=== PATIENT | female | born 1965 | race Caucasian/White ===

== ENCOUNTER → 2016-11-30 | Outpatient (CLI) | payer BC ==
[~2016-11-30] MED LIST: BCPILLS PO
--- NOTE | 2016-11-30 15:32 | MAMMOGRAPHY REPORT ---
BILATERAL DIGITAL SCREENING MAMMOGRAM TOMOSYNTHESIS WITH CAD: 11/30/2016 CLINICAL HISTORY: Routine screening. Patient has no complaints. TECHNIQUE: Breast tomosynthesis in addition to standard 2D mammography was performed. Current study was also evaluated with a Computer Aided Detection (CAD) system. COMPARISON: Comparison is made to exams dated: 11/29/2015 mammogram, 11/12/2013 mammogram, 11/13/2014 m ammogram, 11/11/2012 mammogram, 11/08/2011 mammogram, and 11/07/2010 mammogram - [facility]. BREAST COMPOSITION: There are scattered areas of fibroglandular density in both breasts. FINDINGS: No suspicious masses, calcifications, or areas of architectural distortion are noted in e ither breast. There has been no significant interval change compared to prior exams. Nodular asymme try in the right medial breast on the cc view appears similar to prior exams including the 2014 exam , and has the appearance of overlapping fibroglandular tissue on the tomosynthesis images. IMPRESSION: ACR BI-RADS CATEGORY 2: BENIGN There is no mammographic evidence of malignancy. A 1 year screening mammogram is recommended. The p atient will receive written notification of the results. Approximately 10% of breast cancers are not detected with mammography. A negative mammographic repor t should not delay biopsy if a clinically suggestive mass is present. Yumiko Desai M.D. ah/:11/30/2016 14:32:27 Earth Moving Machine Operator: Vivien GAYTAN(Jude)(M), [facility] letter sent: Normal 1/2 BI-RADS Code: ACR BI-RADS Category 2: Benign
== END | disposition home or self-care (01) ==
LOC: C.MAMM 13:54
PROVIDERS: ATTEND Obstetrics & Gynecology
DX: Z12.31 Encounter for screening mammogram for malignant neoplasm of breast (principal)

== ENCOUNTER → 2017-08-08 | Outpatient (CLI) | payer BC | END | disposition home or self-care (01) | LOC: C.LABSPEC 17:37 | PROVIDERS: ATTEND Family Medicine | DX: J02.9 Acute pharyngitis, unspecified (principal) ==

== ENCOUNTER → 2017-12-03 | Outpatient (CLI) | payer OTHER ==
--- NOTE | 2017-12-04 12:57 | MAMMOGRAPHY REPORT ---
BILATERAL DIGITAL SCREENING MAMMOGRAM TOMOSYNTHESIS WITH CAD: 12/03/2017 CLINICAL HISTORY: Routine screening. Patient has no complaints. TECHNIQUE: Breast tomosynthesis in addition to standard 2D mammography was performed. Current study was also evaluated with a Computer Aided Detection (CAD) system. COMPARISON: Comparison is made to exams dated: 11/30/2016 mammogram, 11/29/2015 mammogram, 11/13/2014 marcel mogram, 11/12/2013 mammogram, 11/11/2012 mammogram, and 11/08/2011 mammogram - [facility]. BREAST COMPOSITION: There are scattered areas of fibroglandular density in both breasts. FINDINGS: A linear scar marker overlies the upper outer posterior right breast. There is stable asym metry in the lateral left breast. No suspicious mass, architectural distortion or cluster of suspici ous microcalcifications is seen. IMPRESSION: ACR BI-RADS CATEGORY 1: NEGATIVE There is no mammographic evidence of malignancy. A 1 year screening mammogram is recommended. The pa tient will receive written notification of the results. Approximately 10% of breast cancers are not detected with mammography. A negative mammographic report should not delay biopsy if a clinically suggestive mass is present. Lauren Calvo M.D. ay/:12/03/2017 15:50:56 Film Inspector: Alka GAY)(María), [facility] letter sent: Normal 1/2 BI-RADS Code: ACR BI-RADS Category 1: Negative
== END | disposition home or self-care (01) ==
LOC: C.MAMM 13:56
PROVIDERS: ATTEND Obstetrics & Gynecology
DX: Z12.31 Encounter for screening mammogram for malignant neoplasm of breast (principal)

== ENCOUNTER 2018-01-13 11:14 | Emergency (ER) | payer OTHER ==
[~2018-01-13] VITALS: Ht 170.2 cm; Wt 65.3 kg
[2018-01-13 11:19] VITALS: TEMP 36.9; Ht 170.2 cm; Wt 65.3 kg
[2018-01-13] MEDS ORDERED: MoRPHine SULFATE 10 MG/ML CARP/VIAL IM STA (11:36)
[2018-01-13] MEDS ORDERED: KETOROLAC TROMETHAMINE 60 MG/2 ML VIAL IM STA (11:36)
[2018-01-13] MEDS ORDERED: PRED20TA PO (11:58)
[2018-01-13 12:14] VITALS: BP 120/77; PULSE 56; O2SAT 100
--- NOTE | 2018-01-13 15:36 | EMERGENCY ROOM VISIT NOTE ---
History First contact with patient: 11:24 Chief Complaint: PAIN (GENERALIZED) Stated Complaint: NERVE PAIN AND MUSCLE SPASMS History of Present Illness The patient is a 52 year old white female who presents to the Emergency Room with complaints of neck pain that radiates to her right shoulder and right arm. This is been ongoing for over a week. Patient states she did see her orthopedist, Dr. Spears, and had x-rays obtained. MRI of the cervical spine was recommended due to possible degenerative disc disease. She has not had this scheduled yet. She was given [place] but states it does not sit well with her. She does get a strange feeling from it. She chooses not to use it and instead has been using Tylenol and Naprosyn. She states these are not helping. She called the on-call orthopedist and was told to come to the ED. No new injury. Symptoms are radiating to the right arm. No other treatment. No other complaints. No symptoms to the left arm. She did not sleep well last night secondary to pain. Review of Systems REVIEW OF SYSTEM: HEENT: No dizziness, visual problems, hearing loss, or tinnitus. There is no difficulty swallowing and no oral lesions are present. LYMPH: No adenopathy. PULMONARY: No cough, shortness of breath, sputum production or hemoptysis. CARDIOVASCULAR: No chest pain, palpitations, shortness of breath or peripheral edema. GASTROINTESTINAL: No diarrhea, constipation, nausea, vomiting, or abdominal pain. GENITOURINARY: No dysuria, frequency, urgency or nocturia. NEUROLOGIC: No weakness, muscle tenderness, epilepsy or history of neurological problems. MUSCULOSKELETAL: No history of joint tenderness/swelling. No history of arthritis or arthralgias. SKIN: No rashes or lesions. PSYCHIATRIC: No history of depression or mental illness. ENDOCRINE: No history of diabetes, thyroid disorders, or abnormal hair growth. Past Medical/Surgical History Previous surgeries: Tonsillectomy, wisdom tooth extraction, breast biopsy Medical history: Significant for current neck pain and skin problems. Left last tetanus was greater than 10 years. Family History Unremarkable. Parents are living. Social History Smoking Status: Never Smoker Smokeless Tobacco Use: No Alcohol Use: occasionally Drug Use: none Marital Status: Housing Status: lives with family Occupation Status: employed Current/Historical Medications Scheduled Prednisone (Prednisone), 0 PO DAILY Physical Exam Vital Signs Date Time Temp Pulse Resp B/P (MAP) Pulse Ox O2 Delivery O2 Flow Rate FiO2 01/13/18 12:14 56 16 120/77 100 01/13/18 11:19 36.9 81 18 133/83 100 Room Air Physical Exam General: Well-developed, well-nourished, middle-aged white female, in obvious discomfort. No acute distress. Sitting on the bed. Alert and oriented. Skin: Warm and dry with good turgor. No rashes or lesions. No ecchymosis or erythema. The patient is not diaphoretic. No abrasions. Musculoskeletal: Patient has no obvious asymmetry or deformity to the cervical spine. She has focal discomfort with palpation over the C5 through C7 vertebrae and disc spaces. Palpation in this area does increase symptoms to her right shoulder. She has focal discomfort with palpation through the right trapezius. Muscle spasm is palpable. Full range of motion of the shoulder. Normal overhead reach. Strength is 5/5 for resisted shoulder abduction, bicep curl, wrist extension, wrist flexion, thumb extension, thumb flexion, finger abduction, and finger flexion. Full rotation of the cervical spine. She gets increasing right arm symptoms with neck extension. She gets increasing pain in the trapezius with neck flexion. She has limitation in lateral flexion to the right. Neurologic: Intact sensation to the right arm across all dermatomes. She does complain of decreased subjective sensation across the thumb and median nerve pattern. Peripheral pulses are 2+. Medical Decision & Procedures Medications Administered Medications (Trade) Dose Ordered Sig/Robby Route Start Time Stop Time Status Last Admin Dose Admin Morphine Sulfate (MoRPHine SULFATE INJ) 6 mg NOW STAT IM 01/13/18 11:36 01/13/18 11:37 DC 01/13/18 11:45 6 MG Ketorolac Tromethamine (Toradol Inj) 60 mg NOW STAT IM 01/13/18 11:36 01/13/18 11:37 DC 01/13/18 11:46 60 MG ED Course Patient was educated regarding today's findings. Conservative care measures were discussed. She already has radiographic imaging of her neck obtain this week. We did not repeat her films. She is waiting for her MRI to be scheduled. I do not think this needs to be done emergently. Option of steroid treatment was discussed. She would like to speak with her orthopedist first before beginning. Prescription for a tapering course of prednisone was provided. She was given morphine 6 mg IM and Toradol 60 mg IM while in the ED. Continue with her Tylenol and Naprosyn as previously administered. She may also use the [place] 5 mg every 6 hours as needed for breakthrough pain. Call the orthopedic office tomorrow. Maintain a neutral position of the neck when sitting or sleeping to minimize exacerbation of her pain. Return to the ED for any acute worsening of symptoms. Medical Decision Possibility of nerve root impingement, disc disease, fracture, muscle spasm, brachial plexus injury, and muscle strain were considered among others Medication Reconcilliation Current Medication List: was personally reviewed by me Blood Pressure Screening Patient's blood pressure: Normal blood pressure Impression Primary Impression: Cervical radiculopathy, acute Departure Information Dispostion Home / Self-Care Condition GOOD Prescriptions Prednisone (Prednisone) 20 Mg Tab 0 PO DAILY, #12 TAB 3 DAILY FOR 2 DAYS, THEN 2 DAILY FOR 2 DAYS, THEN 1 DAILY FOR 2 DAYS. Prov: Oskar Arnold,P.A. 01/13/18 Referrals Collins Spears M.D. Forms WORK / SCHOOL INSTRUCTIONS, HOME CARE DOCUMENTATION FORM, TYLENOL USE, IMPORTANT VISIT INFORMATION Patient Instructions [facility] Additional Instructions Follow up with your orthopedist on Sunday for further imaging Prednisone daily-60 mg 2 days, 40 mg 2 days, and 20 mg 2 days Continue with her Tylenol every 6 hours and Naprosyn twice per day as needed Maintaining a neutral position for the neck may help limit your pain.
[2018-01-15] MEDS ORDERED: NAPR-1168 PO (20:45)
[2018-01-15] MEDS ORDERED: ACET-1256 PO (20:45)
== END 2018-01-13 12:16 | disposition home or self-care (01) ==
LOC: C.EDB 11:16 → C.EDC 12:16
DX: M54.12 Radiculopathy, cervical region (principal)

== ENCOUNTER 2018-01-15 19:11 | Emergency (ER) | payer OTHER ==
[~2018-01-15] VITALS: Ht 170.2 cm; Wt 65.0 kg
[~2018-01-15 19:11] MED LIST changes: -BCPILLS PO; +PRED20TA PO
[2018-01-15 19:15] VITALS: TEMP 36.8; Ht 170.2 cm; Wt 65.0 kg
[2018-01-15] MEDS ORDERED: KETOROLAC TROMETHAMINE 30 MG/ML VIAL IV STA (19:25)
[2018-01-15] MEDS ORDERED: MoRPHine SULFATE 4 MG/ML 1 ML CARP\\VIAL IV STA ×2 (19:25→19:56)
[2018-01-15] MEDS ORDERED: DEXAMETHASONE SOD INJ 4 MG/ML VIAL IV STA (19:43)
--- NOTE | 2018-01-15 19:55 | EMERGENCY ROOM VISIT NOTE ---
ED Visit Note First contact with patient: 19:18 CHIEF COMPLAINT: Neck pain HISTORY OF PRESENT ILLNESS: This 52-year-old female patient presents to the emergency department by private vehicle with her complaining of pain in the neck and right arm that started 8 days ago. The patient was seen in this emergency department 2 days ago regarding this pain, and has had an x-ray of her cervical spine. She is followed by Dr. Bettencourt at [facility], who ordered an MRI of the cervical spine today. The patient states that she started having severe muscle spasms in her right upper arm and shoulder area that have been constant, unbearable, 10/10. She has taken Tylenol, naproxen, and Flexeril with no relief. She was also started on a prednisone taper yesterday, but has not noticed any improvement yet. The patient does have a history of previous neck problems, but states never this severe. She denies any recent injury to the neck or arm. The patient does not have pain of the left arm or shoulder. The patient states she has some numbness in her right thumb that has been going on for the past 8 days and is not new or worsened today. She denies any weakness of the right arm and is able to move it normally. The patient denies chest pain or shortness of breath. There was no head injury and no loss of consciousness. The patient denies headache, blurred vision, abdominal pain, nausea, or vomiting. She denies any bowel or bladder dysfunction, saddle paresthesias, numbness or weakness of the lower extremities. REVIEW OF SYSTEMS: A complete 10 point review of systems was reviewed with the patient with pertinent positives and negatives as per history of present illness. All else were negative. ALLERGIES: No known allergy MEDICATIONS: Reviewed in chart. PMH: Degenerative disc disease of the cervical spine, inflammation of the right shoulder requiring cortisone shots SOCIAL HISTORY: Lives at home with her family. She denies tobacco use, alcohol or recreational drug use. PHYSICAL EXAM: VITALS: Vitals are noted on the nurse's note and reviewed by myself. Notably tachycardic and hypertensive. GENERAL: Pleasant and cooperative, in no acute distress, but in obvious discomfort, tearful and pacing the room. Non- diaphoretic, well-developed well-nourished. SKIN: Capillary reflex less than 2 seconds. HEENT: Normocephalic. PERRLA. EOMI. Nares patent. Mucous membranes moist. Neck is supple without nuchal rigidity. Cervical spine is not tender to palpation. The patient has moderate tenderness of the paraspinal muscles on the right. There is no lymphadenopathy. MUSCULOSKELETAL: The patient has full range of motion of the bilateral arms. Strength 5/5 of the bilateral upper extremities. The patient has tenderness with turning of the neck to the right. There is notable spasm of the superior trapezius muscle on the right. Able to give a thumbs up and make an okay sign. NEURO: Patient was alert and oriented to person place and time. Normal sensation to light and sharp touch. No focal neurologic deficits. LUNGS: Clear to auscultation bilaterally with no wheezing, crackles, rhonchi or stridor. Equal expansion bilaterally. HEART: Tachycardic, regular rhythm with no murmurs, rubs or gallops. Normal peripheral perfusion. No edema. ABDOMEN: Soft, nontender, nondistended. Bowel sounds present in all quadrants. IMAGING: MRI cervical spine report (read over the phone to me by Dr. Bustos) - There is mild right foraminal stenosis at the level of C4-C5 and C5-C6. There is mild decreased disc height at the levels of C4-C5 and C5-C6. There is mild right disc bulging at the levels of C4-C5 and C5-C6. No disc herniation or significant canal stenosis. PROCEDURE: Trigger point injection, right lateral neck Indication: Acute spasm of the right trapezius muscle Verbal consent was obtained after the risks and benefits were explained, including but not limited to bleeding/bruising, scarring, infection, pain, among others. At this time, the risks of the procedure are less than the benefits of performing the procedure. A time out was taken and the correct patient and site identified. The patient was placed in an upright seated position in the stretcher. The side of the trapezius muscle was palpated until the most tender point was located just lateral to the base of the neck. The area was cleansed with chlorhexidine scrub. Using a 5/8 inch 25 G needle, approximately 6 mL total (1.5 mL each) of 1% buffered lidocaine with epinephrine was injected in a circular motion around the trigger point. The area was then massaged, again cleansed with chlorhexidine scrub, and a Band-aid was placed over the injection sites. The patient tolerated the procedure well and there were no complications. The patient reported minimal improvement in pain shortly after the injections, but did note improved range of motion in the neck with turning side to side, especially to the right. EMERGENCY DEPARTMENT COURSE: I examined the patient. Differential diagnosis includes cervical radiculopathy, disc bulge, disc herniation, nerve impingement , muscle spasm, torticollis, among others. The patient is in severe discomfort on initial exam, crying and pacing the room, hyperventilating, and notably tachycardic and hypertensive. I spoke on the phone with Dr. Bustos, who is on -call for [facility], he provided me with report findings for the patient's cervical spine MRI from earlier today. I do not feel any additional imaging is warranted at this time. The patient was treated with IV morphine and Toradol for pain control, patient did not have much relief with this. I offered the patient a trigger point injection, which she agreed to have. The patient did not have significant relief of pain after trigger point injection, but did note improved range of motion of the neck. The patient continued to complain of severe pain, is crying and hyperventilating. I did motor coach operator the patient on some breathing techniques to help with relaxation, as I felt there was an anxiety component that was contributing to her pain. She was then given a dose of IV Dilaudid for pain, and did have noticeable improvement in her neck and arm pain. She continued to complain of muscle spasm, so she was additionally given 2mg IV Valium, with good improvement in her spasm and pain. She is noted to have resolution of her tachycardia and hypertension as well, and appears much more comfortable overall. The patient was monitored in the ED for one hour after receiving her last dose of IV pain medication, she remains alert and oriented, blood pressure WNL and sats 100% on room air. Patient was also given a dose of IV Decadron to help improve overall inflammation secondary to disc bulging. She was encouraged to continue her steroid taper. Rx for Valium was sent to pharmacy and patient was educated regarding its use, and instructed to stop using the Flexeril. Patient is scheduled to follow-up with Dr. Rocha, pain management release of information specialist, on 01/17, I encouraged the patient to keep this appointment. She was educated regarding continued pain management at home, follow up plans, and return precautions should her symptoms worsen, she verbalized understanding. The patient was discharged home with her in stable condition and ambulatory. MEDICATION RECONCILIATION: I attest that I have personally reviewed the patient 's current medication list. INITIAL VITAL SIGNS REVIEW: I reviewed the patient's initial vital signs and interpret them as follows: T: Afebrile; BP: Hypertensive; HR: Tachycardic; RR : Within normal limits; Pulse Ox: Within normal limits on room air. Blood pressure screening: The patient was found to have an elevated blood pressure, which was felt to be situational. Patient discussed with Dr. Hayden, who agrees with my assessment and plan. Current/Historical Medications Scheduled Iwiycxvbvlo-Mxeeubiyiij-Gqf C- (Glucosamine Chondroitin), 1 TAB PO DAILY Naproxen Ds (Naprosyn Ds), 550 MG PO BID Prednisone (Prednisone), 0 PO DAILY Scheduled PRN Acetaminophen (Tylenol), 1,000 MG PO Q6 PRN for Pain Cyclobenzaprine Hcl (Flexeril), 1 TAB PO TID PRN for Muscle Spasms Diazepam (Valium), 1 TAB PO TID PRN for Muscle Spasms Allergies Coded Allergies: No Known Allergies (Verified , 01/29/12) Vital Signs Date Time Temp Pulse Resp B/P (MAP) Pulse Ox O2 Delivery O2 Flow Rate FiO2 01/15/18 22:15 76 16 118/78 100 Room Air 01/15/18 21:15 75 16 134/76 100 Room Air 01/15/18 20:46 100 Room Air 01/15/18 19:15 36.8 133 20 159/108 97 Room Air Medications Administered Medications (Trade) Dose Ordered Sig/Robby Route Start Time Stop Time Status Last Admin Dose Admin Morphine Sulfate (MoRPHine SULFATE INJ) 4 mg NOW STAT IV 01/15/18 19:25 01/15/18 19:27 DC 01/15/18 19:34 4 MG Ketorolac Tromethamine (Toradol Inj) 15 mg NOW STAT IV 01/15/18 19:25 01/15/18 19:27 DC 01/15/18 19:34 15 MG Dexamethasone Sodium Phosphate (Decadron Inj) 10 mg NOW STAT IV 01/15/18 19:43 01/15/18 19:44 DC 01/15/18 20:01 4 MG Morphine Sulfate (MoRPHine SULFATE INJ) 4 mg NOW STAT IV 01/15/18 19:56 01/15/18 19:57 DC 01/15/18 20:01 4 MG Hydromorphone HCl (Dilaudid Inj) 1 mg NOW STAT IV 01/15/18 20:34 01/15/18 20:37 DC 01/15/18 20:42 1 MG Diazepam (Valium Inj) 2 mg NOW STAT IV 01/15/18 20:42 01/15/18 20:58 DC 01/15/18 20:42 2 MG Departure Information Impression Primary Impression: Cervical radiculopathy, acute Dispostion Home / Self-Care Condition GOOD Prescriptions Diazepam (VALIUM) 10 Mg Tab 1 TAB PO TID Y for Muscle Spasms, #12 TAB Prov: Luisa Palma, SECURITY PATROL OFFICER 01/15/18 Referrals No Doctor, Assigned (PCP) Patient Instructions ED Cervical Radiculopathy, [facility] Additional Instructions You have been treated in the Emergency Department for Neck Pain. You have received pain medicine in the emergency department which impairs your ability to operate a vehicle. It is illegal for you to drive after receiving these medicines. You have been prescribed Valium 10mg to be taken 1 tablet every 8 hours NEEDED for muscle spasms. Do not drive, operate machinery, or drink alcohol while you are taking this medication, as it may make you drowsy. For pain control, you may use the following [id number] medicines (if >12 yo): - Regular strength (325mg/tab) Tylenol (acetaminophen) 2 tabs every 4-6 hours as needed. Do not exceed 10 tablets in a 24 hour period. Avoid taking more than 3000mg of Tylenol per day. This includes any other sources of acetaminophen you may take on a regular basis. - Regular strength (200 mg/tab) Advil (ibuprofen) 3 tabs every 6-8 hours as needed. Do not exceed a dose of 2400 mg per day. Alternate between ice and heat to the area for comfort. After heat, you may do gentle massage and stretching to help alleviate tight muscles. Please keep your scheduled appointment on 01/17 with [], for further management of your neck pain. Please return to the Emergency Department for severe worsening pain, new onset of numbness or weakness in the arms or legs, difficulty breathing, facial droop , slurred speech, bowel or bladder incontinence, or any other concerns. Work Instructions Return To Work: 3 days
[2018-01-15] MEDS ORDERED: LIDOCAINE/EPINEPHRINE 1% 20 ML VIAL ONE (20:23)
[2018-01-15] MEDS ORDERED: XYLOCAINE 1%/SOD BICARB 20 ML VIAL INFIL ONE (20:30)
[2018-01-15] MEDS ORDERED: HYDROmorphone INJ 1 MG/ML SYR IV STA (20:34)
[2018-01-15] MEDS ORDERED: DIAZEPAM INJ 5 MG/ML 2 ML CARP IV STA (20:42)
[2018-01-15] MEDS ORDERED: CYCL5TAB PO (20:45)
[2018-01-15 20:46] VITALS: O2SAT 100
[2018-01-15] MEDS ORDERED: GLUCTAB7 PO (20:47)
[2018-01-15] MEDS ORDERED: DIAZ10TA3 PO (21:34)
[2018-01-15 22:15] VITALS: BP 118/78; PULSE 76; O2SAT 100
== END 2018-01-15 22:30 | disposition home or self-care (01) ==
LOC: C.EDB 19:14 → C.EDD 22:30
DX: M54.12 Radiculopathy, cervical region (principal); M50.221 Other cervical disc displacement at C4-C5 level; M48.02 Spinal stenosis, cervical region; M62.838 Other muscle spasm; M50.30 Other cervical disc degeneration, unspecified cervical region; Z87.39 Personal history of other diseases of the musculoskeletal system and connective tissue

== ENCOUNTER 2018-01-17 08:47 | Emergency (ER) | payer OTHER ==
[~2018-01-17] VITALS: Ht 170.2 cm; Wt 66.1 kg
[~2018-01-17 08:47] MED LIST changes: +CYCL5TAB PO; +DIAZ10TA3 PO; +GLUCTAB7 PO
[2018-01-17 08:52] VITALS: Ht 170.2 cm; Wt 66.1 kg
[2018-01-17] MEDS ORDERED: HYDROmorphone INJ 1 MG/ML SYR IV STA ×2 (09:03→09:59)
[2018-01-17] MEDS ORDERED: KETOROLAC TROMETHAMINE 30 MG/ML VIAL IV STA (09:03)
[2018-01-17] MEDS ORDERED: SODIUM CHLORIDE 0.9% 500ML 500 ML IV STA (09:03)
[2018-01-17] MEDS ORDERED: ONDANSETRON INJ 2 MG/ML 2 ML VIAL IV STA (09:03)
[2018-01-17] MEDS ORDERED: DIAZ10TA PO (09:06)
[2018-01-17] MEDS ORDERED: DEXAMETHASONE **PF** INJ 10 MG/ML VIAL IV ONE (10:00)
[2018-01-17] MEDS ORDERED: MoRPHine SULFATE 4 MG/ML 1 ML CARP\\VIAL IV STA (11:02)
[2018-01-17] MEDS ORDERED: DIAZEPAM INJ 5 MG/ML 2 ML CARP IV ONE (11:15)
[2018-01-17 11:47] VITALS: BP 117/70; PULSE 75; TEMP 36.8; O2SAT 100
--- NOTE | 2018-01-17 15:43 | EMERGENCY ROOM VISIT NOTE ---
History First contact with patient: 08:59 Chief Complaint: ARM PAIN Stated Complaint: SEVERE PAIN DOWN ARMS DUE TO PINCHED NERVE History of Present Illness The patient is a 52 year old female who presents to the Emergency Room with complaints of persistent right upper extremity and neck pain. The patient reports that this is her third visit within the past 5 days with the same symptoms. The patient reports that she is scheduled today at 12:[address] Rocha for an epidural steroid injection. The patient reports that she could not tolerate the pain this morning, and elected to come to the emergency department for further pain management. The patient reports that she has recently had an MRI performed. She denies any recent injury since her imaging studies. She rates her discomfort a 10 out of 10. Review of Systems 10 system review was performed and was negative except for pertinent positives and negatives as indicated in history of present illness Past Medical/Surgical History Medical Problems: (1) Chronic Sinusitis Nos Surgical Problems: (1) History of tonsillectomy (2) History of wisdom tooth extraction (3) Status post breast lumpectomy Family History No significant family history Social History Smoking Status: Never Smoker Alcohol Use: occasionally Drug Use: none Marital Status: Housing Status: lives with family Occupation Status: employed Current/Historical Medications Scheduled Naproxen Ds (Naprosyn Ds), 550 MG PO BID Prednisone (Prednisone), 0 PO DAILY Scheduled PRN Acetaminophen (Tylenol), 1,000 MG PO Q6 PRN for Pain Diazepam (Valium), 10 MG PO TID PRN for Muscle Spasms Physical Exam Vital Signs Date Time Temp Pulse Resp B/P (MAP) Pulse Ox O2 Delivery O2 Flow Rate FiO2 01/17/18 11:47 36.8 75 20 117/70 100 01/17/18 11:03 75 20 117/70 01/17/18 08:52 36.8 87 20 133/86 100 Room Air Physical Exam CONSTITUTIONAL: Healthy and well nourished. Alert and oriented X 3 with positive affect. Patient appears in severe discomfort and is crying. HEENT: Normocephalic, atraumatic. Pupils equal, round and reactive. NECK: Full active range of motion without discomfort. Range of motion worsens the patient's discomfort and reproduces pain into the right upper extremity. MUSCULOSKELETAL: Patient has no obvious soft tissue edema or erythema of the right upper extremity. Distal pulses are intact. INTEGUMENTARY: No rash or other significant dermatologic conditions noted. NEUROLOGIC: Right hand and finger sensations, along with deltoid sensation are intact. Medical Decision & Procedures Medications Administered Medications (Trade) Dose Ordered Sig/Robby Route Start Time Stop Time Status Last Admin Dose Admin Hydromorphone HCl (Dilaudid Inj) 1 mg NOW STAT IV 01/17/18 09:03 01/17/18 09:05 DC 01/17/18 09:12 1 MG Ketorolac Tromethamine (Toradol Inj) 30 mg NOW STAT IV 01/17/18 09:03 01/17/18 09:05 DC 01/17/18 09:14 30 MG Ondansetron HCl (Zofran Inj) 4 mg NOW STAT IV 01/17/18 09:03 01/17/18 09:05 DC 01/17/18 09:13 4 MG Sodium Chloride 500 ml @ 999 mls/hr Q31M STAT IV 01/17/18 09:03 01/17/18 09:33 DC 01/17/18 09:13 999 MLS/HR Hydromorphone HCl (Dilaudid Inj) 1 mg NOW STAT IV 01/17/18 09:59 01/17/18 10:01 DC 01/17/18 10:06 1 MG Diazepam (Valium Inj) 2.5 mg NOW ONCE IV 01/17/18 11:15 01/17/18 11:16 DC 01/17/18 11:12 2.5 MG Morphine Sulfate (MoRPHine SULFATE INJ) 4 mg NOW STAT IV 01/17/18 11:02 01/17/18 11:04 DC 01/17/18 11:11 4 MG ED Course Patient history and physical exam were performed. Nurse's notes were reviewed. Vital signs were reviewed and were normal. I also reviewed documentation from the patient's last 2 ER visits. As the patient indicates, she is scheduled for an epidural steroid injection at [address] Rocha. She comes to the emergency department for pain management. Because the patient denies any recent injuries, I do not feel that any further laboratory studies are warranted. The patient also reports that she is currently on corticosteroids, and took her dose this morning. I did suggest administering analgesics intravenously for pain titration. The patient was in agreement. IV access was established. The patient was administered a normal saline 500 cc bolus, along with Dilaudid 1 mg, Toradol 30 mg and Zofran 4 mg IVP. Upon reassessment in approximately 15 minutes, the patient reported her pain really did not improve much. She was then administered an additional Dilaudid 1 mg and Decadron 10 mg IVP. Allowing an additional hour to pass, the patient reported that she still had notable discomfort rated an 8 out of 10. At this point, the patient was requesting some IV Valium as well which seemed to help her in the past. She was therefore administered morphine 4 mg and Valium 2.5 mg IVP. After approximately 40 minutes, the patient reported enough pain relief to go directly to Dr. Rocha's office, rating her pain a 6 out of 10. The patient's vital signs remained stable, and was able to ambulate without any dizziness or other significant symptoms. The patient will go directly to Dr. Rocha's office for further reevaluation and management. Medical Decision [place] Drug Monitoring Program Search Results: patient reviewed within database, no issues identified Medication Reconcilliation Current Medication List: was personally reviewed by me Blood Pressure Screening Patient's blood pressure: Normal blood pressure Impression Primary Impression: Radiculitis of right cervical region Departure Information Dispostion Home / Self-Care Referrals Rolando Rocha D.O. Forms HOME CARE DOCUMENTATION FORM, IMPORTANT VISIT INFORMATION Patient Instructions [facility] Additional Instructions Keep your appointment with Dr. Rocha for further definitive management.
[2018-01-17] MEDS ORDERED: NAPR-1168 PO (20:45)
[2018-01-17] MEDS ORDERED: ACET-1256 PO (20:45)
== END 2018-01-17 11:48 | disposition home or self-care (01) ==
LOC: C.EDB 08:48
DX: M54.12 Radiculopathy, cervical region (principal)